=== PATIENT | male | born 1975 | race African-American/Black ===

== ENCOUNTER 2016-11-09 18:15 | Emergency (ER) | payer SELFPAY ==
[~2016-11-09] VITALS: Ht 185.4 cm; Wt 104.3 kg
[~2016-11-09 18:15] MED LIST: ASPI-630 PO; HYDR-971 PO; IBUP200T43 PO; INSU100I13 SQ; INSU100V13 SQ; INSU200I4 SQ; LISI1TAB7 PO; METF500T4 PO; RANI150C PO; TRAM50TA PO
[2016-11-09] MEDS ORDERED: HYDR-965 PO (19:18)
--- NOTE | 2016-11-09 19:23 | PHYS DOC ---
General Chief Complaint: KNEE INJURY Stated Complaint: RT KNEE PAIN Time Seen by MD: 18:26 Source: patient, old records Exam Limitations: no limitations Problems: History of Present Illness Initial Comments Pt is 41/M to ED with SO c/o right knee pain. Pt states two days ago he was giving SO piggyback ride in parking lot walking to car. Pt right knee "buckled" and pt had to stop and put his SO down. After awhile he was able to walk to his car. He awoke yesterday with right knee swelling/stiffness/pain. Pain primarily with weight bearing, pt points across joint line. He's felt "extra motion" in the joint, it has given out on him today. He has "sprained" it in the past but denies any prior major injury. No prearrival treatment, pain worse with movement improved with rest no fever/ malaise/n/v or other sx. Onset: other Severity: severe Pain/Injury Location: right knee Method of Injury: twisted Modifying Factors: worse with jarring, worse with movement, improves with rest Allergies: Coded Allergies: shellfish derived (Verified Allergy, Intermediate, 10/12/15) Past Medical History Medical History: diabetes, hypertension Surgical History: noncontributory Family History Significant Family History: no pertinent family hx Social History Smoker: less than 1 pack/day Alcohol: occasionally Drugs: none Review of Systems Constitutional: denies chills, denies diaphoresis, denies fever Respiratory: denies cough, denies shortness of breath Cardiovascular: denies chest pain, denies palpitations Gastrointestinal: denies diarrhea, denies nausea, denies vomiting Genitourinary: denies dysuria, denies frequency, denies hematuria Musculoskeletal: see HPI Psychiatric/Neurological: denies numbness, denies paresthesia, denies weakness Physical Exam General Appearance: WD/WN, mild distress Neck: non-tender, supple Cardiovascular/Respiratory: normal peripheral pulses, no respiratory distress Back: no CVA tenderness, no vertebral tenderness Knees: right knee joint effusion, right knee other (2+ effusion, joint line TTP , collaterals appear intact no bony TTP, doesn't tolerate Oscar due to discomfort, ext is NV intact. ) Neurologic/Tendon: normal sensation, normal motor functions, normal tendon functions, responds to pain, no evidence tendon injury Psychiatric: alert, oriented x 3 Orders, Labs, Meds I discussed the nature of the patient's injury with him at length. I discussed likelihood that an MRI was necessary plain films would likely be of no benefit. Patient is agreeable and requests that I not check plain films. An knee immobilizer was placed I rechecked the patient he was neurovascularly intact distally. We will treat his symptoms with [place] by mouth and he understands to remain nonweightbearing until cleared by his doctor. He expressed agreement and understanding with the treatment plan. Departure Time of Disposition: 19:20 Disposition: HOME, SELF-CARE Diagnosis: internal derangement right knee NOS Condition: GOOD Patient Instructions: Knee Effusion, [id number], RICE - Routine Care for Injuries, [id number] Additional Instructions: Nonweight bearing crutches only until cleared by doctor. Wear right knee immobilizer until doctor follow up. RICE, see handout. OTC ibuprofen for baseline discomfort. Rx: [place] 7.5mg #20, take with food. Follow up with your doctor this week for recheck and further imaging or referrals if needed. Return to ED with new or changing symptoms. GOVIND LEWIS DO Nov 09, 2016 19:22
[2016-11-09] MEDS ORDERED: MORPHINE SULFATE 10 MG/ML SYRINGE. IM ONE (19:30)
[2016-11-09 19:45] VITALS: BP 150/96
== END 2016-11-09 19:52 | disposition home or self-care (01) ==
LOC: ER 18:15
DX: M23.91 Unspecified internal derangement of right knee (principal); E11.9 Type 2 diabetes mellitus without complications; I10 Essential (primary) hypertension; F17.210 Nicotine dependence, cigarettes, uncomplicated; Z91.013 Allergy to seafood
CPT/HCPCS: 29505; 96372; 99283; J2270

== ENCOUNTER 2018-01-05 15:24 | Emergency (ER) | payer SELFPAY ==
[~2018-01-05] VITALS: Ht 185.4 cm; Wt 95.3 kg
[~2018-01-05 15:24] MED LIST changes: +HYDR-965 PO; -IBUP200T43 PO; +IBUP200T44 PO; +METF500T16 PO; -METF500T4 PO
[2018-01-05] MEDS ORDERED: IV NORMAL SALINE 1,000ML 1,000 ML IV SCH (15:50)
[2018-01-05 16:12] LABS: BASO # 0.1 x10^3/uL (0.0-0.2); BASO % 1 % (0-3); EOS # 0.1 x10^3/uL (0.0-0.7); EOS % 1 % (0-3); HEMATOCRIT 44.8 % (39.0-53.0); HEMOGLOBIN 14.8 g/dL (13.0-17.5); LYMPH # 2.2 x10^3/uL (1.0-4.8); LYMPH % 24 % (24-48); MEAN CORPUSCULAR HEMOGLOBIN 23 pg (25-35); MEAN CORPUSCULAR HGB CONC 33 g/dL (31-37); MEAN CORPUSCULAR VOLUME 71 fL (79-100); MONO # 0.8 x10^3/uL (0.0-1.1); MONO % 9 % (0-9); NEUT # 5.9 x10^3uL (1.8-7.7); NEUT % 64 % (31-73); PLATELET COUNT 213 x10^3/uL (140-400); RED BLOOD COUNT 6.31 x10^6/uL (4.30-5.70); RED CELL DISTRIBUTION WIDTH 14.2 % (11.5-14.5); WHITE BLOOD COUNT 9.1 x10^3/uL (4.0-11.0)
[2018-01-05 16:31] LABS: ALBUMIN 3.7 g/dL (3.4-5.0); ALBUMIN/GLOBULIN RATIO 1.2 (1.0-1.7); CALCIUM 9.2 mg/dL (8.5-10.1); CREATININE 1.1 mg/dL (0.7-1.3); GFR 88.8; POTASSIUM 4.7 mmol/L (3.5-5.1); TOTAL BILIRUBIN 0.3 mg/dL (0.2-1.0); TOTAL PROTEIN 6.8 g/dL (6.4-8.2)
[2018-01-05 16:45] LABS: HYPOCHROMIA PRESENT; MICROCYTOSIS SLIGHT; PLT ESTIMATE ADEQUATE (ADEQUATE)
[2018-01-05 17:08] LABS: BACTERIA,URINE 0 /HPF (0-FEW); BILIRUBIN,URINE NEG (NEG); CLARITY,URINE CLEAR; COLOR,URINE YELLOW; GLUCOSE,URINE >=1000 mg/dL (NEG); NITRITE,URINE NEG (NEG); RBC,URINE 0 /HPF (0-2); SQUAMOUS EPITHELIAL CELL,UR OCC /LPF; UROBILINOGEN,URINE 0.2 mg/dL (0.2 mg/dL); WBC,URINE RARE /HPF (0-4)
[2018-01-05] MEDS ORDERED: INSULIN REGULAR 100 UNIT/ML 3ML VIAL. IV ONE (17:20)
[2018-01-05] MEDS ORDERED: INSU100I13 SQ (17:47)
--- NOTE | 2018-01-05 17:50 | PHYS DOC ---
Past History Past Medical History: Diabetes, Hypertension Past Surgical History: No Surgical History Smoking: Cigarettes, Less than 1pk/day Alcohol Use: None Drug Use: None Adult General Chief Complaint Chief Complaint: BLOOD SUGAR PROBLEM HPI HPI Patient is a 42-year-old male who presents with report that his blood sugars been elevated for the last few days. He states that his meter ran high this afternoon. He denies any chest pain or shortness of breath. He also denies any nausea or vomiting. Patient does indicate that he has been just a little bit lightheaded. He also indicates that he has had polyuria and polydipsia. Patient indicates that he ran out of his insulin 8 days ago. Review of Systems Review of Systems Constitutional: Denies fever or chills [] Respiratory: Denies cough or shortness of breath [] Cardiovascular: Denies chest pain. [] Gastrointestinal: Denies abdominal pain, nausea, vomiting or diarrhea. [] Musculoskeletal: Denies back pain or joint pain [] All other systems were reviewed and found to be within normal limits, except as documented in this note. Current Medications Current Medications Current Medications Medications (Trade) Dose Ordered Sig/Zcakery Start Time Stop Time Status Last Admin Dose Admin Insulin Human Regular (HumuLIN R VIAL) 6 unit 1X ONCE 01/05/18 17:20 01/05/18 17:21 DC 01/05/18 17:11 6 UNIT Sodium Chloride 1,000 ml @ 1,000 mls/hr Q1H 01/05/18 15:50 01/05/18 16:49 DC 01/05/18 16:05 1,000 MLS/HR Allergies Allergies Allergies Coded Allergies Type Severity Reaction Last Updated Verified shellfish derived Allergy Intermediate 10/12/15 Yes Physical Exam Physical Exam Constitutional: Well developed, well nourished, no acute distress, non-toxic appearance. [] HENT: Normocephalic, atraumatic, bilateral external ears normal, oropharynx moist, no oral exudates, nose normal. [] Eyes: PERRLA, EOMI, conjunctiva normal, no discharge. [] Neck: Normal range of motion, no tenderness, supple, no stridor. [] Cardiovascular:Heart rate regular rhythm [] Lungs & Thorax: Bilateral breath sounds clear to auscultation [] Abdomen: Bowel sounds normal, soft, no tenderness. [] Skin: Warm, dry, no erythema, no rash. [] Extremities: No tenderness, no cyanosis, no clubbing, ROM intact, no edema. [] Neurologic: Alert and oriented X 3, normal motor function, normal sensory function, no focal deficits noted. [] Current Patient Data Vital Signs Vital Signs Date Time Temp Pulse Resp B/P (MAP) Pulse Ox O2 Delivery O2 Flow Rate FiO2 01/05/18 15:39 99.1 94 22 96 Room Air Lab Results Laboratory Tests Test 01/05/18 15:58 01/05/18 16:45 White Blood Count 9.1 x10^3/uL (4.0-11.0) Red Blood Count 6.31 x10^6/uL (4.30-5.70) H Hemoglobin 14.8 g/dL (13.0-17.5) Hematocrit 44.8 % (39.0-53.0) Mean Corpuscular Volume 71 fL (79-100) L Mean Corpuscular Hemoglobin 23 pg (25-35) L Mean Corpuscular Hemoglobin Concent 33 g/dL (31-37) Red Cell Distribution Width 14.2 % (11.5-14.5) Platelet Count 213 x10^3/uL (140-400) Neutrophils (%) (Auto) 64 % (31-73) Lymphocytes (%) (Auto) 24 % (24-48) Monocytes (%) (Auto) 9 % (0-9) Eosinophils (%) (Auto) 1 % (0-3) Basophils (%) (Auto) 1 % (0-3) Neutrophils # (Auto) 5.9 x10^3uL (1.8-7.7) Lymphocytes # (Auto) 2.2 x10^3/uL (1.0-4.8) Monocytes # (Auto) 0.8 x10^3/uL (0.0-1.1) Eosinophils # (Auto) 0.1 x10^3/uL (0.0-0.7) Basophils # (Auto) 0.1 x10^3/uL (0.0-0.2) Platelet Estimate Adequate (ADEQUATE) Hypochromasia Present Microcytosis Slight Sodium Level 130 mmol/L (136-145) L Potassium Level 4.7 mmol/L (3.5-5.1) Chloride Level 97 mmol/L (98-107) L Carbon Dioxide Level 24 mmol/L (21-32) Anion Gap 9 (6-14) Blood Urea Nitrogen 17 mg/dL (8-26) Creatinine 1.1 mg/dL (0.7-1.3) Estimated GFR (Cockcroft-Gault) 88.8 BUN/Creatinine Ratio 15 (6-20) Glucose Level 396 mg/dL (70-99) H Calcium Level 9.2 mg/dL (8.5-10.1) Total Bilirubin 0.3 mg/dL (0.2-1.0) Aspartate Amino Transferase (AST) 18 U/L (15-37) Alanine Aminotransferase (ALT) 49 U/L (16-63) Alkaline Phosphatase 114 U/L (46-116) Total Protein 6.8 g/dL (6.4-8.2) Albumin 3.7 g/dL (3.4-5.0) Albumin/Globulin Ratio 1.2 (1.0-1.7) Urine Collection Type Unknown Urine Color Yellow Urine Clarity Clear Urine pH 5.0 Urine Specific [place] 1.010 Urine Protein Neg (NEG-TRACE) Urine Glucose (UA) >=1000 mg/dL (NEG) Urine Ketones (Stick) Neg mg/dL (NEG) Urine Blood Neg (NEG) Urine Nitrite Neg (NEG) Urine Bilirubin Neg (NEG) Urine Urobilinogen Dipstick 0.2 mg/dL (0.2 mg/dL) Urine Leukocyte Esterase Neg (NEG) Urine RBC 0 /HPF (0-2) Urine WBC Rare /HPF (0-4) Urine Squamous Epithelial Cells Occ /LPF Urine Bacteria 0 /HPF (0-FEW) EKG EKG [] Radiology/Procedures Radiology/Procedures [] Course & Med Decision Making Course & Med Decision Making Pertinent Labs and Imaging studies reviewed. (See chart for details) After patient arrival patient evaluated by your medical staff and an IV was established and blood work drawn. Patient given IV fluids and upon reviewing blood work, he was given a dose of 6 units of regular insulin IV. Repeat blood sugar demonstrates significant improvement. Findings reviewed with patient and patient does indicate that he is feeling better at this time. I did inquire with patient what form of insulin he is on and he states that he takes Lantus, 35 units in the morning and 35 units at night. I have indicated the patient that I will write for a refill of the Lantus but he needs to follow up with his primary provider in the next 1-2 days. Dragon Disclaimer Dragon Disclaimer This electronic medical record was generated, in whole or in part, using a voice recognition dictation system. Departure Departure: Impression: Primary Impression: Hyperglycemia due to type 2 diabetes mellitus Disposition: HOME, SELF-CARE Condition: STABLE Referrals: EDVIN RAMÍREZ (PCP) Patient Instructions: Insulin Treatment in Diabetes, Type 1 or Type 2 Diabetes Mellitus During Additional Instructions: Follow-up with your primary care provider in the next few days. Scripts Insulin Glargine,Hum.rec.anlog (LANTUS SOLOSTAR) 100 Unit/1 Ml Insuln.pen 35 UNIT SQ QAM and PM, #15 ML Prov: GEORGINA LEWIS Jr. 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 DO Jan 05, 2018 17:50
[2018-01-05 18:08] VITALS: BP 125/80
== END 2018-01-05 18:00 | disposition home or self-care (01) ==
LOC: ER 15:24
DX: E11.65 Type 2 diabetes mellitus with hyperglycemia (principal); I10 Essential (primary) hypertension; F17.210 Nicotine dependence, cigarettes, uncomplicated; Z91.013 Allergy to seafood
CPT/HCPCS: 36415; 80053; 81001; 82947; 85025; 96361; 96374; 99284; J1815; J7030

== ENCOUNTER 2019-12-06 20:05 | Emergency (ER) | payer SELFPAY ==
[~2019-12-06] VITALS: Ht 185.4 cm; Wt 113.3 kg
[~2019-12-06 20:05] MED LIST changes: +HYDR-3165 PO; +HYDR-3166 PO; -HYDR-965 PO; -HYDR-971 PO; +LISI1TAB20 PO; -LISI1TAB7 PO
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
[2019-12-06] MEDS ORDERED: IV RINGERS SOLUTION,LACTATED 1,000 ML IV SCH (20:46)
[2019-12-06] MEDS ORDERED: ASPIRIN CHEWABLE 81 MG TABLET. PO ONE (21:00)
[2019-12-06 21:14] LABS: CALCIUM 8.8 mg/dL (8.5-10.1); GFR 98.2; POTASSIUM 4.4 mmol/L (3.5-5.1)
[2019-12-06 21:16] LABS: BASO % 1 % (0-3); EOS # 0.1 x10^3/uL (0.0-0.7); EOS % 1 % (0-3); HEMATOCRIT 45.6 % (39.0-53.0); HEMOGLOBIN 14.8 g/dL (13.0-17.5); LYMPH # 2.7 x10^3/uL (1.0-4.8); LYMPH % 27 % (24-48); MEAN CORPUSCULAR HEMOGLOBIN 23 pg (25-35); MEAN CORPUSCULAR HGB CONC 33 g/dL (31-37); MEAN CORPUSCULAR VOLUME 72 fL (79-100); MONO # 0.9 x10^3/uL (0.0-1.1); MONO % 9 % (0-9); NEUT # 6.5 x10^3uL (1.8-7.7); NEUT % 63 % (31-73); PLATELET COUNT 245 x10^3/uL (140-400); RED BLOOD COUNT 6.36 x10^6/uL (4.30-5.70); RED CELL DISTRIBUTION WIDTH 14.6 % (11.5-14.5); WHITE BLOOD COUNT 10.3 x10^3/uL (4.0-11.0)
--- NOTE | 2019-12-06 21:26 | RAD ---
PORTABLE CHEST 1V Clinical Indication: Reason: cp / Spl. Instructions: / History: Comparison: AP chest, October 12, 2015. Findings: The cardiomediastinal silhouette is normal. Lungs are clear. There is no pneumothorax. No pleural effusion is appreciated. No acute bone abnormality. IMPRESSION: No acute cardiopulmonary process. Electronically signed by: Boo Dotson MD (12/06/2019 9:22 PM) [facility]ILITY[facility]
[2019-12-06 21:27] LABS: ALBUMIN 3.5 g/dL (3.4-5.0); DIRECT BILIRUBIN 0.1 mg/dL (0.0-0.2); MAGNESIUM 1.7 mg/dL (1.8-2.4); TOTAL BILIRUBIN 0.3 mg/dL (0.2-1.0); TOTAL PROTEIN 7.4 g/dL (6.4-8.2)
[2019-12-06 21:40] LABS: HYPOCHROMIA SLIGHT; PLT ESTIMATE ADEQUATE (ADEQUATE)
[2019-12-06 21:41] LABS: BARBITURATES NEG (NEG); BENZODIAZEPINES NEG (NEG); CANNABINOIDS NEG (NEG); COCAINE NEG (NEG); METHADONE NEG (NEG); OPIATES NEG (NEG); PHENCYCLIDINE NEG (NEG)
[2019-12-06 21:41] LABS: MICROCYTOSIS MOD; OVALOCYTES OCC
[2019-12-06 21:42] LABS: ANISOCYTOSIS SLIGHT
[2019-12-06 21:45] LABS: AMPHETAMINE/METHAMPHETAMINE NEG (NEG)
[2019-12-06 21:52] LABS: BACTERIA,URINE 0 /HPF (0-FEW); BILIRUBIN,URINE NEG (NEG); CLARITY,URINE HAZY; COLOR,URINE YELLOW; GLUCOSE,URINE 250 mg/dL (NEG); NITRITE,URINE NEG (NEG)
[2019-12-06 21:53] LABS: SQUAMOUS EPITHELIAL CELL,UR FEW /LPF
[2019-12-06] MEDS ORDERED: MAGNESIUM HYDROXIDE 2,400 MG/30 ML ORAL.SUSP. PO ONE (22:45)
[2019-12-06 23:26] VITALS: BP 117/82
--- NOTE | 2019-12-06 23:53 | EKG ---
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
--- NOTE | 2019-12-06 23:55 | EKG ---
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
== END 2019-12-06 23:35 | disposition home or self-care (01) ==
LOC: ER 20:05
DX: R07.89 Other chest pain (principal); D50.9 Iron deficiency anemia, unspecified; E83.42 Hypomagnesemia; E11.9 Type 2 diabetes mellitus without complications; I10 Essential (primary) hypertension; F17.210 Nicotine dependence, cigarettes, uncomplicated; Z91.013 Allergy to seafood
CPT/HCPCS: 36415; 71045; 80048; 80076; 80307; 81001; 82150; 82550; 83690; 83735; 83880; 84443; 84484; 85025; 85379; 85610; 85730; 93005; 96360; 99285; J7120

== ENCOUNTER 2020-08-04 04:39 | Emergency (ER) | payer SELFPAY ==
[~2020-08-04] VITALS: Ht 180.3 cm; Wt 113.6 kg
--- NOTE | 2020-08-04 04:57 | EKG ---
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
[2020-08-04] MEDS: IV NORMAL SALINE 1,000ML 1,000 ML IV ONE (05:09)
[2020-08-04 05:11] LABS: BASO # 0.1 x10^3/uL (0.0-0.2); BASO % 1 % (0-3); EOS # 0.1 x10^3/uL (0.0-0.7); EOS % 2 % (0-3); HEMATOCRIT 45.6 % (39.0-53.0); HEMOGLOBIN 14.8 g/dL (13.0-17.5); LYMPH # 2.1 x10^3/uL (1.0-4.8); LYMPH % 26 % (24-48); MEAN CORPUSCULAR HEMOGLOBIN 23 pg (25-35); MEAN CORPUSCULAR HGB CONC 32 g/dL (31-37); MEAN CORPUSCULAR VOLUME 71 fL (79-100); MONO # 0.8 x10^3/uL (0.0-1.1); MONO % 10 % (0-9); NEUT # 5.1 x10^3uL (1.8-7.7); NEUT % 62 % (31-73); PLATELET COUNT 247 x10^3/uL (140-400); RED BLOOD COUNT 6.44 x10^6/uL (4.30-5.70); RED CELL DISTRIBUTION WIDTH 15.1 % (11.5-14.5); WHITE BLOOD COUNT 8.3 x10^3/uL (4.0-11.0)
[2020-08-04] MEDS: ONDANSETRON PF 4 MG/2 ML VIAL. IVP ONE (05:11)
[2020-08-04 05:13] VITALS: BP 127/72
[2020-08-04 05:17] LABS: CALCIUM 8.4 mg/dL (8.5-10.1); CREATININE 0.9 mg/dL (0.7-1.3); GFR 110.9; POTASSIUM 4.4 mmol/L (3.5-5.1)
[2020-08-04 05:23] LABS: ALBUMIN 3.3 g/dL (3.4-5.0); ALBUMIN/GLOBULIN RATIO 0.9 (1.0-1.7); TOTAL BILIRUBIN 0.4 mg/dL (0.2-1.0)
--- NOTE | 2020-08-04 05:23 | RAD ---
INDICATION: Reason: CP / Spl. Instructions: / History: COMPARISON: December 06, 2019 FINDINGS: Single view of chest obtained. No focal airspace consolidation. Cardiomediastinal contour unremarkable. No acute osseous abnormality. IMPRESSION: * No focal airspace consolidation or edema. Electronically signed by: Drew Rabago MD (08/04/2020 5:21 AM) [id number]
[2020-08-04] MEDS ORDERED: ONDA4TAB12 PO (05:41)
[2020-08-04 05:45] LABS: % EOS 3 % (0-5); % LYMPHS 30 % (24-48); % MONOS 8 % (0-10); % SEGS 59 % (35-66); ANISOCYTOSIS MOD; HYPOCHROMIA SLIGHT; MICROCYTOSIS MOD
[2020-08-04 06:11] LABS: PLT ESTIMATE ADEQUATE (ADEQUATE)
== END 2020-08-04 05:54 | disposition home or self-care (01) ==
LOC: ER 04:39
DX: R07.89 Other chest pain (principal); R11.10 Vomiting, unspecified; F17.210 Nicotine dependence, cigarettes, uncomplicated; I10 Essential (primary) hypertension; E11.9 Type 2 diabetes mellitus without complications; Z91.013 Allergy to seafood
CPT/HCPCS: 36415; 71045; 80053; 84484; 85007; 85025; 93005; 96361; 96374; 99285; J2405; J7030

== ENCOUNTER 2021-06-24 23:04 | Emergency (ER) | payer SELFPAY ==
[~2021-06-24] VITALS: Ht 182.9 cm; Wt 116.6 kg
[~2021-06-24 23:04] MED LIST changes: -LISI1TAB20 PO; +LISI1TAB39 PO; +ONDA4TAB12 PO
[2021-06-24 23:14] VITALS: BP 129/81
[2021-06-24] MEDS ORDERED: CEPH500C PO (23:27)
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
[2021-06-24] MEDS ORDERED: IBUPROFEN 600 MG TABLET. PO ONE (23:45)
[2021-06-24] MEDS ORDERED: ACETAMINOPHEN 500 MG TABLET PO ONE (23:45)
[2021-06-24] MEDS ORDERED: CEPHALEXIN 250 MG CAPSULE PO ONE (23:45)
== END 2021-06-24 23:54 | disposition home or self-care (01) ==
LOC: ER 23:04
DX: L02.415 Cutaneous abscess of right lower limb (principal); E11.42 Type 2 diabetes mellitus with diabetic polyneuropathy; I10 Essential (primary) hypertension; F17.210 Nicotine dependence, cigarettes, uncomplicated; Z91.018 Allergy to other foods
CPT/HCPCS: 96372; 99284; J3010